=== PATIENT | male | born 1990 | race Caucasian/White ===

== ENCOUNTER 2024-03-12 20:44 | Emergency (ER) | payer MEDICARE ==
[~2024-03-12] VITALS: Ht 170.2 cm; Wt 90.7 kg
[2024-03-12] MEDS ORDERED: HYDROMORPHONE 1 MG/1 ML DISP.SYRIN ONE ×2 (21:09→22:06)
[2024-03-12] MEDS: HYDROMORPHONE 1 MG/1 ML DISP.SYRIN IM ONE (21:11)
[2024-03-12] MEDS ORDERED: KETOROLAC TROMETHAMINE 15 MG INJ ONE (22:04)
[2024-03-12] MEDS: HYDROMORPHONE 1 MG/1 ML DISP.SYRIN IV ONE (22:10)
[2024-03-12] MEDS: KETOROLAC TROMETHAMINE 15 MG INJ IVP ONE (22:10)
[2024-03-12] MEDS ORDERED: IBUP-1957 PO (23:31)
[2024-03-12] MEDS ORDERED: OXYC5TAB3 PO (23:31)
[2024-03-12 23:36] VITALS: BP 141/104; O2SAT 97
== END 2024-03-12 23:36 | disposition home or self-care (01) ==
LOC: ER 20:45
DX: S52.591A Other fractures of lower end of right radius, initial encounter for closed fracture (principal); Z79.1 Long term (current) use of non-steroidal anti-inflammatories (NSAID); Z79.891 Long term (current) use of opiate analgesic; W18.39XA Other fall on same level, initial encounter; Y93.89 Activity, other specified; Y92.89 Other specified places as the place of occurrence of the external cause; Y99.8 Other external cause status
CPT/HCPCS: 29125; 73110; 96372; 96374; 96375; 99284; J1170; J1885; A4606; A4663